=== PATIENT | male | born 1965 | race Caucasian/White ===

== ENCOUNTER 2017-06-24 23:39 | Emergency (ER) | payer BC ==
[~2017-06-24] VITALS: Ht 180.3 cm; Wt 102.0 kg
[2017-06-24 23:42] VITALS: BP 123/74; PULSE 88; RESP 16; TEMP 98.4; O2SAT 95
[2017-06-24] MEDS ORDERED: ALBUAER3 INH (23:51)
[2017-06-24] MEDS ORDERED: METF1000 PO (23:51)
[2017-06-24] MEDS ORDERED: IPRA17I INH (23:51)
[2017-06-25 00:05] VITALS: BP 146/93; PULSE 88; RESP 22; O2SAT 92
[2017-06-25 00:06] VITALS: O2SAT 95
[2017-06-25] MEDS ORDERED: methylPREDNISolone SOD SUCC 125 MG/2 ML VIAL IV PUSH ONE (00:30)
[2017-06-25] MEDS ORDERED: SODIUM CHLORIDE 0.9% FLUSH 10 ML FLUSH IVF PRN (00:30)
--- NOTE | 2017-06-25 00:32 | PD ---
HPI Chief Complaint: Respiratory Distress Time Seen by Provider: 00:30 Travel History International Travel<30 days: No Contact w/Intl Traveler<30days: No Traveled to known affect area: No History of Present Illness HPI The patient is a 51 year old male who presents to the [facility] emergency department with a history of shortness of breath that began this afternoon. He was dx with asthma 6-8 years ago. He has a prior history of smoking and quit 60 years ago. He has a productive cough that began this AM. It is productive of clear sputum. He has chest tightness associated with trying to take a deep breath and fatigue with exertion. The patient reports that he is currently visiting from out of town. He has tried using his rescue inhaler and nebulizer machine without improvement. The patient denies any history of fever,congestion , neck pain, abdominal pain, vomiting, diarrhea, urinary symptoms, or neurologic symptoms. He has had urinary frequency today, and he does have a history of diabetes. The patient reports that he did not bring his Accu-Chek machine with him, therefore he is concerned that his blood sugar may be elevated. He is on metformin and Januvia. [facility] Past Medical History Narrative Medical The patient's past medical history is significant for DM, Asthma. He is visiting from [place]. Asthma: Yes Diabetes: Yes Patient Takes Glucophage: Yes (06/24/17 07:00) Diminished Hearing: No Past Surgical History Narrative Surgical The patient's past surgical history is significant for right shoulder sx. Social History Alcohol Use: Yes (OCCASIONALLY) Tobacco Use: No (quit smoking 6-8 years ago.) Substance Use: No Allergies-Medications (Allergen,Severity, Reaction): Coded Allergies: No Known Allergies (Unverified , 06/25/17) Reported Meds & Prescriptions Reported Meds & Active Scripts Active Levaquin (Levofloxacin) 500 Mg Tablet 500 Mg PO DAILY 6 Days Prednisone 20 Mg Tab 20 Mg PO BID 5 Days Reported Proair Hfa 8.5 GM Inh (Albuterol Sulfate) 90 Mcg/Act Aer 2 Puff INH Q4-6H PRN 108 mcg/actuation Atrovent HFA 12.9 GM Inh (Ipratropium [place]) 17 Mcg/Actuation Aer 2 Puff INH Q6HR PRN Metformin (Metformin HCl) 1,000 Mg Tab 1,000 Mg PO BIDPC Januvia Review of Systems Except as stated in HPI: all other systems reviewed are Neg General / Constitutional: No: Fever Eyes: No: Visual changes HENT: No: Headaches Cardiovascular: No: Chest Pain or Discomfort Respiratory: Positive: Cough, Shortness of Breath, Wheezing Gastrointestinal: No: Abdominal Pain Genitourinary: Positive: Frequency, Dysuria, No: Urgency Musculoskeletal: No: Pain Skin: No Rash Neurologic: No: Weakness Psychiatric: No: Depression Endocrine: No: Polydipsia Hematologic/Lymphatic: No: Easy Bruising Physical Exam Narrative General: The patient is well-developed well-nourished male in no acute distress. Head and Neck exam: Head is normocephalic atraumatic. Eyes: EOMI, pupils are equal round and reactive to light. Nose: Midline septum with pink mucous membranes Mouth: Dentition unremarkable. Moist mucus membranes. Posterior oropharynx is not erythematous. No tonsillar hypertrophy. Uvula midline. Airway patent. Neck: No palpable lymphadenopathy. No nuchal rigidity. No thyromegaly. Cardiovascular: Regular rate and rhythm without murmurs, gallops, or rubs. Lungs: Soft expiratory wheezes audible throughout bilateral lung chow. No rhonchi, no crackles. Abdomen: Soft, without tenderness to palpation in all 4 quadrants of the abdomen. No guarding, rebound, or rigidity. Normal bowel sounds are audible. No tenderness on palpation of McBurney's point. Negative Baptiste's sign. Extremities: No clubbing, cyanosis, or edema. 2+ pulses in all 4 extremities. No calf tenderness on palpation. Back: No spinous process tenderness to palpation. No costovertebral angle tenderness to palpation. Neurologic Exam: Grossly nonfocal. Skin Exam: No rash noted. Intact skin that is warm and dry. Data Data Last Documented VS Vital Signs Date Time Temp Pulse Resp B/P (MAP) Pulse Ox O2 Delivery O2 Flow Rate FiO2 06/25/17 00:41 Nasal Cannula 06/25/17 00:41 20 06/25/17 00:06 95 2.00 06/25/17 00:05 88 06/24/17 23:42 98.4 Orders Orders Electrocardiogram (06/25/17 00:30) Complete Blood Count With Diff (06/25/17 00:30) Comprehensive Metabolic Panel (06/25/17 00:30) Creatine Kinase (Cpk) (06/25/17 00:30) Ckmb (Isoenzyme) Profile (06/25/17 00:30) Troponin I (06/25/17 00:30) B-Type Natriuretic Peptide (06/25/17 00:30) Chest, Single Ap (06/25/17 00:30) Iv Access Insert/Monitor (06/25/17 00:30) Ecg Monitoring (06/25/17 00:30) Oximetry (06/25/17 00:30) Oxygen Administration (06/25/17 00:30) Sodium Chloride 0.9% Flush (Ns Flush) (06/25/17 00:30) Methylprednisolone So Succ Inj (Solumedr (06/25/17 00:30) Albuterol-Ipratropium Neb (Duoneb Neb) (06/25/17 00:30) Sodium Chlor 0.9% 1000 Ml Inj (Ns 1000 M (06/25/17 01:45) Insulin Human Regular Inj (Novolin R Inj (06/25/17 01:45) CKMB (06/25/17 00:35) CKMB% (06/25/17 00:35) Levofloxacin 750 Mg Premix Inj (Levaquin (06/25/17 02:30) Labs Laboratory Tests Test 06/25/17 00:35 White Blood Count 13.7 TH/MM3 Red Blood Count 5.49 MIL/MM3 Hemoglobin 16.4 GM/DL Hematocrit 46.5 % Mean Corpuscular Volume 84.6 FL Mean Corpuscular Hemoglobin 29.9 PG Mean Corpuscular Hemoglobin Concent 35.3 % Red Cell Distribution Width 13.7 % Platelet Count 227 TH/MM3 Mean Platelet Volume 7.8 FL Neutrophils (%) (Auto) 67.1 % Lymphocytes (%) (Auto) 20.7 % Monocytes (%) (Auto) 6.2 % Eosinophils (%) (Auto) 5.3 % Basophils (%) (Auto) 0.7 % Neutrophils # (Auto) 9.2 TH/MM3 Lymphocytes # (Auto) 2.8 TH/MM3 Monocytes # (Auto) 0.9 TH/MM3 Eosinophils # (Auto) 0.7 TH/MM3 Basophils # (Auto) 0.1 TH/MM3 CBC Comment DIFF FINAL Differential Comment Blood Urea Nitrogen 25 MG/DL Creatinine 1.14 MG/DL Random Glucose 405 MG/DL Total Protein 8.1 GM/DL Albumin 3.8 GM/DL Calcium Level 8.7 MG/DL Alkaline Phosphatase 94 U/L Aspartate Amino Transf (AST/SGOT) 18 U/L Alanine Aminotransferase (ALT/SGPT) 33 U/L Total Bilirubin 0.3 MG/DL Sodium Level 131 MEQ/L Potassium Level 4.1 MEQ/L Chloride Level 100 MEQ/L Carbon Dioxide Level 22.9 MEQ/L Anion Gap 8 MEQ/L Estimat Glomerular Filtration Rate 68 ML/MIN Total Creatine Kinase 229 U/L Creatine Kinase MB 2.1 NG/ML Troponin I LESS THAN 0.02 NG/ML B-Type Natriuretic Peptide 5 PG/ML MDM Medical Decision Making Medical Screen Exam Complete: Yes Emergency Medical Condition: Yes Medical Record Reviewed: Yes Interpretation(s) Last Impressions Chest X-Ray 06/25/17 003 Signed Impressions: Service Date/Time: Sunday, June 25, 2017 00:43 - CONCLUSION: No acute disease. Vic Pollock MD Differential Diagnosis COPD exacerbation, versus asthma exacerbation, versus pneumonia, versus acute coronary syndrome Narrative Course During the course of the patients emergency department visit, the patients history, examination, and differential diagnosis were reviewed with the patient. 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 The patient had IV access obtained and blood work sent for analysis. The patient had an ECG done on arrival. The patient's ECG reveals a sinus rhythm with a heart rate of 83, no acute ST segment elevation or depression. The patient was initially provided Solu-Medrol 125 mg IV, DuoNeb 3. The patients laboratory studies were reviewed and remarkable for a CBC that is remarkable for a white count of 13.7, hemoglobin 16.4, platelets 227 with 5.3 eosinophils, CMP is remarkable for sodium of 131, BUN 25, glucose 405, cardiac enzymes within normal limits, BNP 5. Radiology studies were reviewed and remarkable for a chest x-ray that shows no acute abnormality. The patient is noted to have hyperglycemia with no evidence of acidosis. The patient was given regular insulin 10 units subcutaneously 1. The patient's BNP is within normal limits ruling out congestive heart failure. The patient was given a normal saline 1 L IV fluid bolus. The patient's symptoms are most consistent with bronchitis with a COPD exacerbation. The patient was given Levaquin 750 mg IV 1. The patient will be discharged home on Levaquin with a short course of steroid, and close monitoring of his blood sugar. The patient is instructed to report back to his primary care physician immediately reading returns back home for reexamination. The patient is instructed to use his rescue inhaler every 4-6 hours as needed. The patient is resting comfortably and feels better, is alert and in no distress. The patients results and examination findings were discussed with the patient. The repeat examination is unremarkable and benign. The history, exam, diagnostic testing, and current condition do not suggest any significant pathology to warrant further testing, continued ED treatment, admission, or surgical evaluation at this point. The vital signs have been stable. The patient does not have uncontrollable pain, intractable vomiting, or other significant symptoms. The patient's condition is stable and appropriate for discharge. The patient will pursue further outpatient evaluation with a primary care physician or other designated or consulting physician as indicated in the discharge instructions. The patient expressed understanding and was agreeable with this plan. Diagnosis Primary Impression: COPD exacerbation Additional Impressions: Bronchitis Hyperglycemia due to type 2 diabetes mellitus Qualified Codes: E11.65 - Type 2 diabetes mellitus with hyperglycemia Referrals: Primary Care Physician 2 days Patient Instructions: Acute Bronchitis (ED), COPD (Chronic Obstructive Pulmonary Disease) (ED), Diabetic Hyperglycemia (ED), General Instructions Med/Other Pt SpecificInfo: Prescription(s) given Scripts Levofloxacin (Levaquin) 500 Mg Tablet 500 MG PO DAILY for Infection for 6 Days, #6 TAB 0 Refills Prov: Luann Manuel MD 06/25/17 Prednisone (Prednisone) 20 Mg Tab 20 MG PO BID for 5 Days, #10 TAB 0 Refills Prov: Luann Manuel MD 06/25/17 Disposition: 01 DISCHARGE HOME Condition: Stable Luann Manuel MD Jun 25, 2017 00:32
[2017-06-25 00:41] VITALS: RESP 20
[2017-06-25] MEDS: RESP: ALBUTEROL 2.5 MG/IPRATROPIUM 0.5 MG NEB (SCH) INH ×2 (00:43→00:44)
--- NOTE | 2017-06-25 00:56 | RADRPT ---
EXAM DATE/TIME: 06/25/2017 00:43 [facility] COMPARISON: No previous studies available for comparison. INDICATIONS : Shortness of breath. MEDICAL HISTORY : Asthma. SURGICAL HISTORY : None. ENCOUNTER: Initial ACUITY: 1 day PAIN SCORE: 0/10 LOCATION: Bilateral chest FINDINGS: A single view of the chest demonstrates the lungs to be symmetrically aerated without evidence of mas s, infiltrate or effusion. The cardiomediastinal contours are unremarkable. Osseous structures are intact. CONCLUSION: No acute disease. Vic Pollock MD on June 25, 2017 at 0:54 Board Certified Radiologist. This report was verified electronically.
[2017-06-25 01:07] LABS: AUTOMATED NEUTROPHIL # 9.2 TH/MM3 (1.8-7.7); BASOPHIL # 0.1 TH/MM3 (0-0.2); BASOPHIL % 0.7 % (0.0-2.0); EOSINOPHIL # 0.7 TH/MM3 (0-0.4); EOSINOPHIL % 5.3 % (0.0-4.0); HEMATOCRIT 46.5 % (39.0-51.0); HEMOGLOBIN 16.4 GM/DL (13.0-17.0); LYMPH % 20.7 % (9.0-44.0); LYMPHOCYTE # 2.8 TH/MM3 (1.0-4.8); MEAN CELL VOLUME 84.6 FL (80.0-100.0); MEAN CORPUSCULAR HEMOGLOBIN 29.9 PG (27.0-34.0); MEAN CORPUSCULAR HGB CONC 35.3 % (32.0-36.0); MEAN PLATELET VOLUME 7.8 FL (7.0-11.0); MONO % 6.2 % (0.0-8.0); MONOCYTE # 0.9 TH/MM3 (0-0.9); NEUT % 67.1 % (16.0-70.0); PLATELET COUNT 227 TH/MM3 (150-450); RED BLOOD COUNT 5.49 MIL/MM3 (4.50-5.90); RED CELL DISTRIBUTION WIDTH 13.7 % (11.6-17.2); WHITE BLOOD COUNT 13.7 TH/MM3 (4.0-11.0)
[2017-06-25 01:31] LABS: ALBUMIN 3.8 GM/DL (3.4-5.0); ALKALINE PHOSPHATASE 94 U/L (45-117); ALT (GPT) 33 U/L (12-78); AST (GOT) 18 U/L (15-37); BICARBONATE 22.9 MEQ/L (21.0-32.0); BLOOD UREA NITROGEN 25 MG/DL (7-18); CALCIUM 8.7 MG/DL (8.5-10.1); CHLORIDE 100 MEQ/L (98-107); CREATININE 1.14 MG/DL (0.60-1.30); GLOMERULAR FILTRATION RATE 68 ML/MIN (>89); SODIUM (NA) 131 MEQ/L (136-145); TOTAL BILIRUBIN ADULT 0.3 MG/DL (0.2-1.0); TOTAL PROTEIN 8.1 GM/DL (6.4-8.2); TROPONIN I LESS THAN 0.02 NG/ML (0.02-0.05)
[2017-06-25 01:35] LABS: GLUCOSE,RANDOM 405 MG/DL (74-106)
[2017-06-25] MEDS ORDERED: SODIUM CHLOR 0.9% 1000 ML INJ 1,000 ML IV ONE (01:45)
[2017-06-25] MEDS ORDERED: INSULIN HUMAN REGULAR 1,000 UNITS/10 ML VIAL SQ ONE (01:45)
[2017-06-25] MEDS ORDERED: LEVA500T33 PO (02:30)
[2017-06-25] MEDS ORDERED: LEVOFLOXACIN 750 MG PREMIX INJ 150 ML IV ONE (02:30)
[2017-06-25] MEDS ORDERED: PRED20 PO (02:30)
--- NOTE | 2017-06-25 09:43 | EKG ---
Date Performed: 06/25/2017 Time Performed: 00:21:24 PTAGE: 51 years EKG: Sinus rhythm NORMAL ECG NO PREVIOUS TRACING DOCTOR: Bonifacio Clement Interpretating Date/Time 06/25/2017 09:42:26
== END 2017-06-25 03:42 | disposition home or self-care (01) ==
LOC: NEPE 23:39
DX: J44.1 Chronic obstructive pulmonary disease with (acute) exacerbation (principal); E11.65 Type 2 diabetes mellitus with hyperglycemia; Z79.84 Long term (current) use of oral hypoglycemic drugs; Z87.891 Personal history of nicotine dependence
CPT/HCPCS: 71045; 80053; 82550; 82552; 83880; 84484; 85025; 93005; 94640; 94664; 96372; 96374; 96375; 99285; J1815; J1956; J2930; J7030

== ENCOUNTER 2017-08-21 00:24 | Emergency (ER) | payer BC ==
[~2017-08-21] VITALS: Ht 180.3 cm; Wt 105.0 kg
[~2017-08-21 00:24] MED LIST: ALBUAER3 INH; IPRA17I INH; LEVA500T33 PO; METF1000 PO; PRED20 PO
[2017-08-21 00:27] VITALS: BP 137/79; PULSE 88; RESP 22; TEMP 97.6; O2SAT 96
[2017-08-21] MEDS ORDERED: DICL75TA PO (00:53)
[2017-08-21] MEDS ORDERED: CYCL10TA PO (00:53)
[2017-08-21] MEDS ORDERED: NORC5TAB PO (00:53)
[2017-08-21] MEDS ORDERED: MORPHINE SULFATE 8 MG/ML INJ IM ONE (01:00)
[2017-08-21] MEDS ORDERED: LORazepam 2 MG/ML VIAL IM ONE (01:00)
[2017-08-21 01:09] VITALS: RESP 22
--- NOTE | 2017-08-21 01:09 | PD ---
HPI Chief Complaint: Back/ Neck Pain or Injury Time Seen by Provider: 00:43 Travel History International Travel<30 days: No Contact w/Intl Traveler<30days: No Traveled to known affect area: No History of Present Illness HPI 52-year-old white male presents emergency department with complaints of right lower back pain. He states that he was lifting a fence at work today at [employer] when he felt something pull in his back. He states that he has thrown out his back. He has had back pain intermittently but this is more intense than usual. He denies any acute bowel or bladder changes. Pain is moderate but can be severe with movement. No numbness or tingling. No alleviating factors. No recent illness. PFSH Past Medical History Asthma: Yes Cardiovascular Problems: Yes ("X 2 STENTS") Diabetes: Yes Patient Takes Glucophage: Yes (METFORMIN) Diminished Hearing: No Myocardial Infarction: Yes Tetanus Vaccination: < 5 Years Past Surgical History Coronary Stent: Yes Social History Alcohol Use: Yes Tobacco Use: Yes (1 PPD) Substance Use: No Allergies-Medications (Allergen,Severity, Reaction): Coded Allergies: No Known Allergies (Unverified , 08/21/17) Reported Meds & Prescriptions Reported Meds & Active Scripts Active [place] (Hydrocodone-Acetaminophen) 5 Mg-325 Mg Tab 1 Tab PO Q6H PRN Flexeril (Cyclobenzaprine HCl) 10 Mg Tab 10 Mg PO TID Diclofenac Sodium DR (Diclofenac Sodium) 75 Mg Tabdr 75 Mg PO BID Levaquin (Levofloxacin) 500 Mg Tablet 500 Mg PO DAILY 6 Days Prednisone 20 Mg Tab 20 Mg PO BID 5 Days Reported Proair Hfa 8.5 GM Inh (Albuterol Sulfate) 90 Mcg/Act Aer 2 Puff INH Q4-6H PRN 108 mcg/actuation Atrovent HFA 12.9 GM Inh (Ipratropium [place]) 17 Mcg/Actuation Aer 2 Puff INH Q6HR PRN Metformin (Metformin HCl) 1,000 Mg Tab 1,000 Mg PO BIDPC Review of Systems General / Constitutional: No: Fever Eyes: No: Visual changes HENT: No: Headaches Cardiovascular: No: Chest Pain or Discomfort Respiratory: No: Shortness of Breath Gastrointestinal: No: Abdominal Pain Genitourinary: No: Dysuria Musculoskeletal: Positive: Limited ROM, Cramping, Pain Skin: No Rash Neurologic: No: Weakness Psychiatric: No: Depression Endocrine: No: Polydipsia Hematologic/Lymphatic: No: Easy Bruising Physical Exam Narrative GENERAL: Well-developed, well-nourished in no apparent distress. Nontoxic appearing. HEAD: Normocephalic, atraumatic. EYES: Pupils equal round and reactive. Extraocular motions intact. No scleral icterus. No injection or drainage. ENT: Nose clear. Throat without erythema, tonsillar hypertrophy or exudate. Uvula midline. Airway patent. NECK: Trachea midline. Supple, nontender, moves head freely. No central bony tenderness or spasm. CARDIOVASCULAR: Regular rate and rhythm without murmurs, gallops, or rubs. RESPIRATORY: Clear to auscultation. Breath sounds equal bilaterally. No wheezes , rales, or rhonchi. GASTROINTESTINAL: Abdomen soft, non-tender, nondistended. No hepato-splenomegaly , or palpable masses. No guarding. EXTREMITIES: No clubbing, cyanosis, or edema. No joint tenderness. BACK: No central bony tenderness to palpation of the dorsal lumbar spine. Patient has right paralumbar tenderness with mild spasm. Decreased range of motion due to pain. No saddle anesthesia. Intact sensation with good distal pulses. Without deformity. No flank tenderness. NEUROLOGICAL: Awake, alert and oriented x 3 .Cranial nerves grossly intact. Motor and sensory grossly within normal limits. Normal speech. Data Data Last Documented VS Vital Signs Date Time Temp Pulse Resp B/P (MAP) Pulse Ox O2 Delivery O2 Flow Rate FiO2 08/21/17 00:27 97.6 88 22 137/79 (98) 96 Orders Orders Morphine Inj (Morphine Inj) (08/21/17 01:00) Lorazepam Inj (Ativan Inj) (08/21/17 01:00) MDM Medical Decision Making Medical Screen Exam Complete: Yes Emergency Medical Condition: Yes Medical Record Reviewed: Yes Differential Diagnosis MDM: High Differential diagnoses: AAA,Fracture, sprain, strain, HNP, nerve or vascular injury Narrative Course The patient has an acute back strain with spasm. He is given morphine 8 mg IM and Ativan 2 mg IM. The patient has had improvement of his pain. Patient is made aware that he will need to follow-up with a primary care doctor for further care and refill of medications. We will give him a short course of medication with this type of injury one would expect the last more than just a few days. Patient verbally states understanding and agrees to follow-up as an outpatient. He does not want to report this as a work comp. 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 This acute back strain with spasm Diagnosis Primary Impression: Acute back strain with spasm Patient Instructions: Narcotic given in the ED, General Instructions Additional Instructions: Rest. Ice for the next 3 days followed by heat . NORCO, Flexeril and Voltaren. Follow-up with a primary care doctor in one week. Return to the ER for emergencies. Med/Other Pt SpecificInfo: Prescription(s) given Scripts Hydrocodone-Acetaminophen ([place]) 5 Mg-325 Mg Tab 1 TAB PO Q6H Y for PAIN, #8 TAB 0 Refills Prov: Timbo Momin MD 08/21/17 Cyclobenzaprine (Flexeril) 10 Mg Tab 10 MG PO TID for Muscle Spasm, #30 TAB 0 Refills Prov: Timbo Momin MD 08/21/[address] (Diclofenac Sodium DR) 75 Mg Tabdr 75 MG PO BID, #20 TAB 0 Refills Prov: Timbo Momin MD 08/21/17 Disposition: 01 DISCHARGE HOME Condition: Pierce Garza Aug 21, 2017 01:09
== END 2017-08-21 01:36 | disposition home or self-care (01) ==
LOC: NEPD 00:24
DX: S39.012A Strain of muscle, fascia and tendon of lower back, initial encounter (principal); M62.830 Muscle spasm of back; J45.909 Unspecified asthma, uncomplicated; E11.9 Type 2 diabetes mellitus without complications; I25.2 Old myocardial infarction; F17.200 Nicotine dependence, unspecified, uncomplicated; Z79.899 Other long term (current) drug therapy; X50.0XXA Overexertion from strenuous movement or load, initial encounter; Y99.0 Civilian activity done for income or pay
CPT/HCPCS: 96372; 99283; J2060; J2270